=== PATIENT | female | born 1975 | race Two or more races ===

== ENCOUNTER 2016-12-02 12:31 | Emergency (ER) | payer MEDICAID ==
[~2016-12-02] VITALS: Ht 170.2 cm; Wt 88.5 kg
[~2016-12-02 12:31] MED LIST: IBUPROFEN600 MG ORAL; IBUPROFEN600 MG PO; NKM; NORCO 5-325 TA1 EACH ORAL
[2016-12-02] MEDS ORDERED: AMOXICILLIN500 MG ORAL (12:49)
[2016-12-02] MEDS ORDERED: TYLENOL EXTRA500 MG ORAL (12:49)
[2016-12-02 12:50] VITALS: BP 109/76
[2016-12-02 12:53] VITALS: BP 109/76
--- NOTE | 2016-12-02 14:10 | Emergency Room Report ---
History of Present Illness General Chief Complaint: Sore Throat Source: Patient Present Illness HPI 41-year-old female presents to ED complaining of throat pain times one week. Denies cough. Notes chills. Patient states pain is worse with swallowing. Pain is 8/10, throbbing, nonradiating. No aggravating relieving factors. Denies any other associated symptom Allergies: Coded Allergies: No Known Allergies (Unverified , 02/24/13) Patient History Past Medical History: none Past Surgical History: none Pertinent Family History: none Social History: Denies: alcohol use, drug use, smoking Last Menstrual Period: 12/01/16 Now: No Immunizations: UTD Reviewed Nursing Documentation: PMH: Agreed, PSxH: Agreed Nursing Documentation-PMH Past Medical History: No Stated History Review of Systems All Other Systems: negative except mentioned in HPI Physical Exam Vital Signs Date Time Temp Pulse Resp B/P Pulse Ox O2 Delivery O2 Flow Rate FiO2 12/02/16 12:42 97.5 61 16 109/76 98 Room Air Sp02 EP Interpretation: reviewed, normal General Appearance: no apparent distress, alert, GCS 15, non-toxic Head: normocephalic Eyes: bilateral eye PERRL, bilateral eye normal inspection ENT: TMs + canals normal, pharyngeal erythema, tonsillar exudate Neck: normal inspection Respiratory: chest non-tender, lungs clear, normal breath sounds, speaking full sentences Cardiovascular #1: regular rate, rhythm, no edema Gastrointestinal: normal inspection Rectal: deferred Genitourinary: no CVA tenderness Musculoskeletal: normal inspection Neurologic: alert, oriented x3, responsive, motor strength/tone normal, sensory intact, speech normal Psychiatric: normal inspection Skin: normal inspection Lymphatic: normal inspection Medical Decision Making Diagnostic Impression: Primary Impression: Pharyngitis Qualified Codes: J02.9 - Acute pharyngitis, unspecified ER Course Hospital Course 41-year-old female presents to ED complaining of sore throat Differential diagnoses include: URI, pharyngitis, otitis media Clinical course Patient placed on stretcher. After initial history, physical exam reveals a young male in no acute distress. Bilateral TM unremarkable. There is pharyngeal erythema w/ tonsillar exudates. No lymphadenopathy. Clinical findings consistent with pharyngitis. Reassurance given Diagnosis - pharyngitis Stable and discharged home with prescriptions for Motrin, amoxicillin. Instructed to followup with PMD. return to ED if symptoms recur or worsen Last Vital Signs Date Time Temp Pulse Resp B/P Pulse Ox O2 Delivery O2 Flow Rate FiO2 12/02/16 12:53 97.5 84 16 109/76 98 Room Air Status: improved Disposition: HOME, SELF-CARE Condition: Stable Scripts Acetaminophen* (TYLENOL EXTRA STRENGTH*) 500 Mg Tablet 500 MG ORAL Q8H Y for Prn Headache/Temp > 101, #30 TAB 0 Refills Prov: DANTE PRAJAPATI M.D. 12/02/16 Amoxicillin* (AMOXIL*) 500 Mg Capsule 500 MG ORAL THREE TIMES A DAY, #21 CAP Prov: DANTE PRAJAPATI M.D. 12/02/16 Referrals: NOT CHOSEN [facility]/,REFERRING (PCP) Patient Instructions: Pharyngitis, [id number] DANTE PRAJAPATI M.D. Dec 02, 2016 14:10
== END 2016-12-02 12:53 | disposition home or self-care (01) ==
LOC: EMR 12:46
DX: J02.9 Acute pharyngitis, unspecified (principal)
CPT/HCPCS: 99284

== ENCOUNTER 2017-04-29 11:07 | Emergency (ER) | payer MEDICAID ==
[~2017-04-29] VITALS: Ht 162.6 cm; Wt 88.5 kg
[~2017-04-29 11:07] MED LIST changes: +AMOXICILLIN500 MG ORAL; +TYLENOL EXTRA500 MG ORAL
[2017-04-29] MEDS ORDERED: Ketorolac 30mg Inj IV ONE (11:45)
[2017-04-29 11:50] VITALS: BP 111/76
[2017-04-29 12:06] LABS: BASOPHILS % (AUTO) 1.3 % (0.0-2.0); EOSINOPHILS % (AUTO) 0.9 % (0.0-3.0); LYMPHOCYTES % (AUTO) 32.6 % (20.0-45.0); MEAN CORPUSCULAR HEMOGLOBIN 22.8 PG (27.0-31.0); MEAN CORPUSCULAR HGB CONC 30.8 G/DL (32.0-36.0); MEAN CORPUSCULAR VOLUME 74 FL (80-99); MEAN PLATELET VOLUME 7.6 FL (6.5-10.1); MONOCYTES % (AUTO) 5.3 % (1.0-10.0); NEUTROPHILS % (AUTO) 59.9 % (45.0-75.0); PLATELET COUNT 300 K/UL (150-450); RED BLOOD COUNT 4.93 M/UL (4.20-5.40); RED CELL DISTRIBUTION WIDTH 15.2 % (11.6-14.8); WHITE BLOOD COUNT 6.4 K/UL (4.8-10.8)
[2017-04-29 12:08] LABS: APPEARANCE,URINE CLEAR; KETONES,URINE NEGATIVE (NEGATIVE); LEUKOCYTE ESTERASE ,URINE NEGATIVE (NEGATIVE); NITRITE,URINE NEGATIVE (NEGATIVE); PH,URINE 5 (4.5-8.0); PROTEIN,URINE NEGATIVE (NEGATIVE); UROBILINOGEN,URINE NORMAL MG/DL (0.0-1.0)
[2017-04-29 12:18] LABS: BACTERIA,URINE FEW /HPF; MUCUS,URINE FEW /LPF (NONE/OCC); RBC,URINE 0-2 /HPF (0 - 2); SQUAMOUS EPITHELIAL CELL,UR FEW /LPF (NONE/OCC); WBC,URINE 0-2 /HPF (0 - 2)
[2017-04-29 12:27] LABS: ALANINE AMINOTRANSFERASE 14 U/L (3-33); ALBUMIN/GLOBULIN RATIO 1.5 (1.0-2.7); ANION GAP 13 (5-15); ASPARTATE AMINO TRANSFERASE 12 U/L (5-40); CALCIUM 9.5 mg/dL (8.6-10.2); CARBON DIOXIDE 24 mEQ/L (20-30); CHLORIDE 102 mEQ/L (98-107); CREATININE 0.7 mg/dL (0.5-0.9); GLOMERULAR FILTRATION RATE > 60 mL/min (>60); HEMOLYSIS 0; LIPASE 24 U/L (< 60); SODIUM 139 mEQ/L (135-145)
--- NOTE | 2017-04-29 13:59 | Diagnostic Imaging Report ---
Indication: Right lower quadrant pain Technique: Spiral acquisitions obtained through the abdomen and pelvis. No oral contrast utilized, per emergency room physician request No IV contrast utilized, per referring physician request.. Multiplanar reconstructions were generated. Total dose length product 935 mGycm. CTDIvol(s) 19 mGy. Dose reduction achieved using automated exposure control Comparison: None Findings: Lack of enteric contrast limits assessment of the GI tract. The appendix is normal. There is no evidence of diverticulosis or diverticulitis. Small bowel loops are prominent, somewhat fluid-filled, but not frankly dilated. No free or loculated intraperitoneal air or fluid. Distal esophagus, stomach, duodenum are unremarkable. Lack of IV contrast limits assessment of the solid organs. The liver, gallbladder, pancreas, spleen, adrenals are unremarkable. There is an accessory splenule. There is mild ectasia of the right ureter, although there is no hydronephrosis and no ureteral obstructing lesion is demonstrated no focal renal parenchymal abnormality. The uterus is retroverted. No retroperitoneal or mesenteric mass or adenopathy. No pelvic mass or adenopathy. The lung bases demonstrate posterior dependent atelectatic changes. The bones are unremarkable. Impression: Limited exam, due to lack of oral and IV contrast administration. Mild ectasia of the right ureter, without evidence of downstream obstruction lesion. Significance uncertain but doubtful. Correlate with clinical findings No definite acute abnormality otherwise Minimal posterior dependent atelectatic pulmonary parenchymal changes incidentally noted The CT scanner at [facility] is accredited by the [employer] and the scans are performed using protocols designed to limit radiation exposure to as low as reasonably achievable to attain images of sufficient resolution adequate for diagnostic evaluation.
--- NOTE | 2017-04-29 14:04 | Emergency Room Report ---
History of Present Illness General Chief Complaint: Abdominal Pain Source: Patient Present Illness HPI This patient states that yesterday she twisted and then felt pain in her right back and right groin. She states the pain is worse with movement and twisting her torso. She states the pain radiates down her right leg to her right knee. She denies trauma. She denies recent illness. She denies fever or chills. She denies nausea or vomiting. She denies numbness. She has no other complaints. Allergies: Coded Allergies: No Known Allergies (Unverified , 02/24/13) Patient History Past Medical History: none, see triage record Social History: Denies: alcohol use, drug use, smoking Last Menstrual Period: 04/13/2017 Now: No Reviewed Nursing Documentation: PMH: Agreed, PSxH: Agreed Nursing Documentation-PMH Past Medical History: No Stated History Review of Systems All Other Systems: negative except mentioned in HPI Physical Exam Vital Signs Date Time Temp Pulse Resp B/P Pulse Ox O2 Delivery O2 Flow Rate FiO2 04/29/17 11:13 98.2 69 16 111/76 99 Sp02 EP Interpretation: reviewed, normal General Appearance: no apparent distress, alert, GCS 15, non-toxic Head: normocephalic, atraumatic Eyes: bilateral eye PERRL, bilateral eye normal inspection ENT: hearing grossly normal, normal pharynx, no angioedema, normal voice Neck: full range of motion, supple/symm/no masses Respiratory: no respiratory distress, no retraction, no accessory muscle use, speaking full sentences Cardiovascular #1: no edema Gastrointestinal: normal bowel sounds, soft, non-distended, no guarding, no rebound, tenderness - TTP in RLQ Rectal: deferred Musculoskeletal: back normal, gait/station normal, normal range of motion, non- tender Neurologic: alert, oriented x3, responsive, motor strength/tone normal, sensory intact, speech normal Psychiatric: judgement/insight normal, memory normal, mood/affect normal, no suicidal/homicidal ideation Skin: normal color, no rash, warm/dry, well hydrated Medical Decision Making Diagnostic Impression: Primary Impression: Sciatica Additional Impressions: Muscle strain Back pain ER Course This patient has a clinical presentation consistent with muscle strain/ sciatica. There are no red flags on physical exam or history that would make me concerned for underlying fracture. The patient did undergo CT of the abdomen and pelvis given a tenderness to palpation in the right lower quadrant. There is no evidence of appendicitis or other acute intra-abdominal findings. There is no evidence of urolithiasis or urinary tract infection. The patient' s laboratory workup is benign. The patient has pain with range of motion and has tenderness to palpation along the muscle. There is no evidence of compartment syndrome. There is no neurologic deficit. The patient was instructed on supportive home measures. No emergency medical condition was identified. The patient was given return precautions and followup instructions. Labs Test 04/29/17 11:40 White Blood Count 6.4 K/UL (4.8-10.8) Red Blood Count 4.93 M/UL (4.20-5.40) Hemoglobin 11.2 G/DL (12.0-16.0) Hematocrit 36.5 % (37.0-47.0) Mean Corpuscular Volume 74 FL (80-99) Mean Corpuscular Hemoglobin 22.8 PG (27.0-31.0) Mean Corpuscular Hemoglobin Concent 30.8 G/DL (32.0-36.0) Red Cell Distribution Width 15.2 % (11.6-14.8) Platelet Count 300 K/UL (150-450) Mean Platelet Volume 7.6 FL (6.5-10.1) Neutrophils (%) (Auto) 59.9 % (45.0-75.0) Lymphocytes (%) (Auto) 32.6 % (20.0-45.0) Monocytes (%) (Auto) 5.3 % (1.0-10.0) Eosinophils (%) (Auto) 0.9 % (0.0-3.0) Basophils (%) (Auto) 1.3 % (0.0-2.0) Urine Color Pale yellow Urine Appearance Clear Urine pH 5 (4.5-8.0) Urine Specific [place] 1.025 (1.005-1.035) Urine Protein Negative (NEGATIVE) Urine Glucose (UA) Negative (NEGATIVE) Urine Ketones Negative (NEGATIVE) Urine Occult Blood 1+ (NEGATIVE) Urine Nitrite Negative (NEGATIVE) Urine Bilirubin Negative (NEGATIVE) Urine Urobilinogen Normal MG/DL (0.0-1.0) Urine Leukocyte Esterase Negative (NEGATIVE) Urine RBC 0-2 /HPF (0 - 2) Urine WBC 0-2 /HPF (0 - 2) Urine Squamous Epithelial Cells Few /LPF (NONE/OCC) Urine Bacteria Few /HPF (NONE) Urine Mucus Few /LPF (NONE/OCC) Urine HCG, Qualitative Negative Sodium Level 139 mEQ/L (135-145) Potassium Level 4.0 mEQ/L (3.4-4.9) Chloride Level 102 mEQ/L (98-107) Carbon Dioxide Level 24 mEQ/L (20-30) Anion Gap 13 (5-15) Blood Urea Nitrogen 13 mg/dL (7-23) Creatinine 0.7 mg/dL (0.5-0.9) Estimat Glomerular Filtration Rate > 60 mL/min (>60) Glucose Level 118 mg/dL (74-106) Calcium Level 9.5 mg/dL (8.6-10.2) Total Bilirubin < 0.2 mg/dL (0.0-1.2) Aspartate Amino Transf (AST/SGOT) 12 U/L (5-40) Alanine Aminotransferase (ALT/SGPT) 14 U/L (3-33) Alkaline Phosphatase 69 U/L (35-104) Total Protein 7.0 g/dL (6.6-8.7) Albumin 4.2 g/dL (3.5-5.2) Globulin 2.8 g/dL Albumin/Globulin Ratio 1.5 (1.0-2.7) Lipase 24 U/L (< 60) CT/MRI/US Diagnostic Results CT/MRI/US Diagnostic Results : Imaging Test Ordered: CT abd/pelivs Impression Impression: Limited exam, due to lack of oral and IV contrast administration. Mild ectasia of the right ureter, without evidence of downstream obstruction lesion. Significance uncertain but doubtful. Correlate with clinical findings No definite acute abnormality otherwise Minimal posterior dependent atelectatic pulmonary parenchymal changes incidentally noted Last Vital Signs Date Time Temp Pulse Resp B/P Pulse Ox O2 Delivery O2 Flow Rate FiO2 04/29/17 11:50 98.2 69 16 111/76 99 Status: improved Disposition: HOME, SELF-CARE Condition: Improved Referrals: NOT CHOSEN IPA/,REFERRING (PCP) CHIDI KO D.O. Apr 29, 2017 14:04
[2017-04-29] MEDS ORDERED: IBUPROFEN600 MG ORAL (14:05)
[2017-04-29] MEDS ORDERED: CYCLOBENZAPRINE10 MG ORAL (14:05)
[2017-04-29 14:26] VITALS: BP 111/76
== END 2017-04-29 14:28 | disposition home or self-care (01) ==
LOC: EMR 11:30
DX: M54.30 Sciatica, unspecified side (principal); S39.012A Strain of muscle, fascia and tendon of lower back, initial encounter; X50.1XXA Overexertion from prolonged static or awkward postures, initial encounter; Y92.89 Other specified places as the place of occurrence of the external cause; R10.31 Right lower quadrant pain
CPT/HCPCS: 36415; 74176; 80053; 81003; 81025; 83690; 85025; 96374; 96375; 99284; J1885

== ENCOUNTER 2019-11-29 12:57 | Emergency (ER) | payer MEDICAID ==
[~2019-11-29] VITALS: Ht 165.1 cm; Wt 88.5 kg
[~2019-11-29 12:57] MED LIST changes: +CYCLOBENZAPRINE10 MG ORAL
--- NOTE | 2019-11-29 13:26 | NUR ---
ED Nurse Note: Pt walked into ED w/ c/o pain in head, shoulders, and legs 9/10 for 1 week. Pt describes pain as aching. Pt states it is unkown cause for colin and denies any injury or accident. Pt is alert and orientedx4, ambulatory. Pt does not have any coughing or congestion.
[2019-11-29 13:28] VITALS: BP 109/63
--- NOTE | 2019-11-29 13:42 | Emergency Room Report ---
History of Present Illness General Chief Complaint: Pain Source: Patient Present Illness HPI 44 YO female presents to the ED c/o body aches 9/10 in severity with a constant dull ROSARIO x 1 week. Pt. reports improvement after taking naproxen yesterday but her symptoms returned several hours later after medication wore off. She denies history of migraines. Patient denies recent trauma, fall or strenuous activities. She denies recent flulike symptoms. She denies fevers, chills, nausea, vomiting. Patient does report that she believes her symptoms significantly progressed after she ate some red meat yesterday. Patient denies abdominal pain, constipation or diarrhea. She denies dysuria, urinary frequency , urgency or hematuria. She denies any other significant past medical history and she states she is not currently taking any medications. She denies sudden onset of her ROSARIO. Allergies: Coded Allergies: No Known Allergies (Unverified , 02/24/13) Patient History Past Medical History: see triage record Past Surgical History: none Pertinent Family History: none Now: No Reviewed Nursing Documentation: PMH: Agreed; PSxH: Agreed Nursing Documentation-PMH Past Medical History: No Stated History Review of Systems All Other Systems: negative except mentioned in HPI Physical Exam Vital Signs Date Time Temp Pulse Resp B/P (MAP) Pulse Ox O2 Delivery O2 Flow Rate FiO2 11/29/19 13:10 98.8 94 17 110/68 (82) 95 Room Air Sp02 EP Interpretation: reviewed, normal General Appearance: no apparent distress, alert, GCS 15, non-toxic Head: normocephalic, atraumatic Eyes: bilateral eye normal inspection, bilateral eye PERRL, bilateral eye EOMI , bilateral eye other - no photophobia ENT: hearing grossly normal, normal voice Neck: full range of motion, no meningismus Respiratory: lungs clear, normal breath sounds, no respiratory distress, no wheezing, speaking full sentences Cardiovascular #1: regular rate, rhythm Gastrointestinal: normal bowel sounds, non tender, soft Rectal: deferred Genitourinary: normal inspection, no CVA tenderness Musculoskeletal: back normal, normal range of motion, gait/station normal, non- tender, other Neurologic: alert, motor strength/tone normal, oriented x3, sensory intact, responsive, speech normal, normal gait, grossly normal, normal inspection, no focal defects, other - negative kernig Psychiatric: judgement/insight normal Skin: no rash, normal color, normal inspection Lymphatic: no adenopathy Medical Decision Making PA Attestation Dr. Bhatt is my supervising Physician whom patient management has been discussed with. Diagnostic Impression: Primary Impression: Generalized body aches ER Course 44 YO female presents to the ED c/o body aches 9/10 in severity with a constant dull ROSARIO x 1 week. Pt. reports improvement after taking naproxen yesterday but her symptoms returned several hours later after medication wore off. She denies history of migraines. Patient denies recent trauma, fall or strenuous activities. She denies recent flulike symptoms. She denies fevers, chills, nausea, vomiting. Patient does report that she believes her symptoms significantly progressed after she ate some red meat yesterday. Patient denies abdominal pain, constipation or diarrhea. She denies dysuria, urinary frequency , urgency or hematuria. She denies any other significant past medical history and she states she is not currently taking any medications. She denies sudden onset of her ROSARIO. Ddx considered but are not limited to UTi , Pyelo, STI, Stone, Cystitis Vital signs: are WNL, pt. is afebrile H&PE are most consistent with possible UTI / generalized myalgias. Patient does not demonstrate any physical signs that would indicate meningitis, subarachnoid hemorrhage or encephalitis at this time. Patient has full range of motion of all joints she is nontoxic in appearance and in no acute distress. ORDERS: - UA labs are attached : WNL no evidence of infection. ED INTERVENTIONS: -Toradol IM -Tylenol PO -I do not identify an emergent condition at this time. With current presentation , pt. is stable for close outpatient follow up and conservative treatment. D/ w pt. to return promptly to ED with worsening or new symptoms.- Pt. verbalizes' understanding and agreement with proposed treatment plan.proposed treatment plan. DISCHARGE: At this time pt. is stable for d/c to home. Will provide printed patient care instructions, and any necessary prescriptions. Care plan and follow up instructions have been discussed with the patient prior to discharge. Labs Test 11/29/19 14:05 Urine Color Pale yellow Urine Appearance Clear Urine pH 6.5 (4.5-8.0) Urine Specific [place] 1.010 (1.005-1.035) Urine Protein Negative (NEGATIVE) Urine Glucose (UA) Negative (NEGATIVE) Urine Ketones Negative (NEGATIVE) Urine Blood Negative (NEGATIVE) Urine Nitrite Negative (NEGATIVE) Urine Bilirubin Negative (NEGATIVE) Urine Urobilinogen Normal MG/DL (0.0-1.0) Urine Leukocyte Esterase Negative (NEGATIVE) Last Vital Signs Date Time Temp Pulse Resp B/P (MAP) Pulse Ox O2 Delivery O2 Flow Rate FiO2 11/29/19 13:28 98.8 70 17 109/63 99 Room Air Disposition: HOME, SELF-CARE Condition: Stable Scripts Ibuprofen* (MOTRIN*) 600 Mg Tablet 600 MG ORAL THREE TIMES A DAY, #30 TAB 0 Refills Prov: Angelia Wilkinson 11/29/19 Referrals: NON PHYSICIAN (PCP) Patient Instructions: Joint Pain, [id number], Muscle Pain, Adult, Pain Without a Known Cause Additional Instructions: Take medications as directed. Follow up with a Primary Care Provider in 3-5 days, even if your symptoms have resolved. --Please review list of primary care clinics, if you do not already have a primary care provider Return sooner to ED if new symptoms occur, or current symptoms become worse. - Please note that this Emergency Department Report was dictated using [employer] paper products technology software, occasionally this can lead to erroneous entry secondary to interpretation by the dictation equipment. Angelia Wilkinson Nov 29, 2019 13:41
[2019-11-29] MEDS ORDERED: Ketorolac 30mg Inj IM ONE (13:45)
[2019-11-29 14:32] LABS: APPEARANCE,URINE CLEAR; BILIRUBIN, URINE NEGATIVE (NEGATIVE); COLOR,URINE PALE YELLOW; GLUCOSE, URINE (UA) NEGATIVE (NEGATIVE); KETONES,URINE NEGATIVE (NEGATIVE); LEUKOCYTE ESTERASE ,URINE NEGATIVE (NEGATIVE); NITRITE,URINE NEGATIVE (NEGATIVE); PH,URINE 6.5 (4.5-8.0); PROTEIN,URINE NEGATIVE (NEGATIVE); UROBILINOGEN,URINE NORMAL MG/DL (0.0-1.0)
[2019-11-29] MEDS ORDERED: IBUPROFEN600 MG ORAL (15:23)
--- NOTE | 2019-11-29 15:34 | NUR ---
ER DISCHARGE NOTE: Patient is cleared to be discharged per ERMD, pt is aox4, on room air, with stable vital signs. pt was given dc and prescription instructions, pt was able to verbalize understanding, pt id band removed. pt is able to ambulate with steady gait. pt took all belongings.
[2019-11-29 15:35] VITALS: BP 110/72
== END 2019-11-29 15:36 | disposition home or self-care (01) ==
LOC: EMR 13:21
DX: R52 Pain, unspecified (principal)
CPT/HCPCS: 81003; 96372; J1885; Z7502; 99283

== ENCOUNTER 2020-08-15 16:47 | Emergency (ER) | payer MEDICAID ==
[~2020-08-15] VITALS: Ht 152.4 cm; Wt 83.9 kg
--- NOTE | 2020-08-15 17:17 | NUR ---
ED Nurse Note: triage information obtained via interpreter and translator Tresa, # [id number].
[2020-08-15 17:20] VITALS: BP 108/61
[2020-08-15] MEDS ORDERED: CYMBALTA30 MG ORAL (17:20)
--- NOTE | 2020-08-15 17:20 | NUR ---
ED Nurse Note: Pt walked into ED c/o epigastric pain and diarrhea x3 days. Pt stated pain worsens every after meal. Denies n/v. No fever/ chill. AAOx4, verbally responsive. Sinhala speaking only.
[2020-08-15] MEDS ORDERED: LEVOTHYROXINE125 MCG ORAL (17:21)
[2020-08-15] MEDS ORDERED: BACLOFEN10 MG ORAL (17:21)
[2020-08-15] MEDS ORDERED: FERROUS SULFAT325 MG ORAL (17:21)
[2020-08-15] MEDS ORDERED: VITAMIN D325 MC1 PO (17:21)
[2020-08-15] MEDS ORDERED: Dicyclomine HCl 10mg/5ml oral soln ORAL ONE (17:45)
[2020-08-15] MEDS ORDERED: Mylanta II UD 30ml ORAL ONE (17:45)
[2020-08-15] MEDS ORDERED: Lidocaine 2% Visc 15ml soln ORAL ONE (17:45)
--- NOTE | 2020-08-15 18:41 | Emergency Room Report ---
History of Present Illness General Chief Complaint: Abdominal Pain Source: Patient Present Illness HPI 45-year-old female presents to the emergency department complaining of 6 out of 10 severity epigastric pain with exacerbation every time she attempts to eat or drink anything. Patient reports she has been having symptoms for 3 weeks however she notices her symptoms are more frequent. Patient also reports having loose stools regularly and states that she has been having symptoms for about 2 months. She denies nausea or vomiting. She denies blood in the stool or black tarry stools. Patient does report history of anemia and was taking iron at 1 point but she states she has increased iron-containing foods in her diet. Patient reports only only other medical problem is hypothyroid. She denies recent travel or ill contacts with similar symptoms. She denies abdominal pain or tenderness. She denies urainary frequency, urgency, dysuria or hematuria. She reports recent shoulder injury and was taking muscle relaxer and Naproxen. Pt. reports having appointment with her PCP on the of this month regarding her symptoms. She denies CP, palpitations, or dizziness. Allergies: Coded Allergies: No Known Allergies (Unverified , 02/24/13) COVID-19 Screening Contact w/high risk pt: No Experienced COVID-19 symptoms?: Yes COVID-19 Testing performed SOUS CHEF KITCHEN MANAGER: No Patient History Past Medical History: see triage record Past Surgical History: none Pertinent Family History: none Last Menstrual Period: 07/31/20 Now: No Reviewed Nursing Documentation: PMH: Agreed; PSxH: Agreed Nursing Documentation-PM Past Medical History: No History, Except For Review of Systems All Other Systems: negative except mentioned in HPI Physical Exam Vital Signs Date Time Temp Pulse Resp B/P (MAP) Pulse Ox O2 Delivery O2 Flow Rate FiO2 08/15/20 16:53 99.0 92 16 108/61 (77) 95 Room Air Sp02 EP Interpretation: reviewed, normal General Appearance: no apparent distress, alert, GCS 15, non-toxic Head: normocephalic, atraumatic Eyes: bilateral eye normal inspection, bilateral eye PERRL ENT: hearing grossly normal, normal voice Neck: full range of motion Respiratory: lungs clear, normal breath sounds, speaking full sentences Cardiovascular #1: regular rate, rhythm Gastrointestinal: normal bowel sounds, non tender, soft, non-distended, no guarding Rectal: deferred Genitourinary: normal inspection, no CVA tenderness Musculoskeletal: normal range of motion, gait/station normal, non-tender Neurologic: alert, motor strength/tone normal, oriented x3, sensory intact, responsive, speech normal Psychiatric: judgement/insight normal Skin: no rash, normal color Medical Decision Making PA Attestation Dr. Sol is my supervising Physician whom patient management has been discussed with. Diagnostic Impression: Primary Impression: Gastritis Qualified Codes: K29.00 - Acute gastritis without bleeding Additional Impressions: Epigastric abdominal pain Diarrhea Qualified Codes: R19.7 - Diarrhea, unspecified ER Course 45-year-old female presents to the emergency department complaining of 6 out of 10 severity epigastric pain with exacerbation every time she attempts to eat or drink anything. Patient reports she has been having symptoms for 3 weeks however she notices her symptoms are more frequent. Patient also reports having loose stools regularly and states that she has been having symptoms for about 2 months. She denies nausea or vomiting. She denies blood in the stool or black tarry stools. Patient does report history of anemia and was taking iron at 1 point but she states she has increased iron-containing foods in her diet. Miladys ent reports only only other medical problem is hypothyroid. She denies recent travel or ill contacts with similar symptoms. She denies abdominal pain or tenderness. She denies urainary frequency, urgency, dysuria or hematuria. She reports recent shoulder injury and was taking muscle relaxer and Naproxen. Pt. reports having appointment with her PCP on the of this month regarding her symptoms. She denies CP, palpitations, or dizziness. Ddx considered but are not limited to GE, colitis, acute appendicitis, SBO, H.pylori, Gastritis, PNA, pericarditis just to name a few. Vital signs: pt. is afebrile, H&PE are most consistent with Gastritis - no evidence to suggest acute abdomen on physical exam. Pt. non-toxic in appearance, NAD able to tolerate oral medications and fluids. Pt. does not show signs of significant dehydration. ORDERS: -None required at this time, the dx is clinical. ED INTERVENTIONS: -Mylanta PO -Lidocaine PO -Pepcid PO Upon re-evaluation, pt. reports her symptoms have improved. -I do not identify an emergent condition at this time. With current presentation, pt. is stable for close outpatient follow up and conservative treatment. D/w pt. to return promptly to ED with worsening or new symptoms.- Pt. (and or responsible democrat) verbalizes' understanding and agreement with proposed treatment plan.proposed treatment plan. DISCHARGE: At this time pt. is stable for d/c to home. Will provide printed patient care instructions, and any necessary prescriptions. Care plan and follow up instructions have been discussed with the patient prior to discharge. Last Vital Signs Date Time Temp Pulse Resp B/P (MAP) Pulse Ox O2 Delivery O2 Flow Rate FiO2 08/15/20 17:20 92 16 Room Air 08/15/20 17:20 99.0 108/61 95 Status: improved Disposition: HOME, SELF-CARE Condition: Stable Referrals: NOT CHOSEN IPA/MD,REFERRING (PCP) Patient Instructions: Food Choices to Help Relieve Diarrhea, Adult, Gastritis, Adult, [id number] Additional Instructions: Take medications as directed. Follow up with a Primary Care Provider in 3-5 days, even if your symptoms have resolved. Keep the appointment that you made with your primary care provider on the of this month. Return sooner to ED if new symptoms occur, or current symptoms become worse. - Please note that this Emergency Department Report was dictated using [email or web address] manager technology software, occasionally this can lead to erroneous entry secondary to interpretation by the dictation equipment. Angelia Wilkinson Aug 15, 2020 18:41
[2020-08-15] MEDS ORDERED: FAMOTIDINE20 MG ORAL (18:43)
[2020-08-15] MEDS ORDERED: DICYCLOMINE HCL10 MG ORAL (18:43)
[2020-08-15] MEDS ORDERED: LIDOCAINE VISC100 ML ORAL (18:43)
[2020-08-15 18:50] VITALS: BP 115/68
--- NOTE | 2020-08-15 18:50 | NUR ---
ED Nurse Note: Pt cleared by ERPA for discharge. DC instructions was given and explained to pt and verbalized understanding of teachings. v sent electronically to the pharmacy of choice. All medical deviecs such as ID band removed. Pt is AAO x4, ambulatory and left with all personal belongings.
== END 2020-08-15 18:50 | disposition home or self-care (01) ==
LOC: EMR 17:30
DX: K29.00 Acute gastritis without bleeding (principal); R19.7 Diarrhea, unspecified
CPT/HCPCS: 99282

== ENCOUNTER 2020-11-21 23:35 | Inpatient (IN) | payer MEDICAID ==
[~2020-11-21] VITALS: Ht 165.1 cm; Wt 88.0 kg
[~2020-11-21 23:35] MED LIST changes: +BACLOFEN10 MG ORAL; +CYMBALTA30 MG ORAL; +DICYCLOMINE HCL10 MG ORAL; +FAMOTIDINE20 MG ORAL; +FERROUS SULFAT325 MG ORAL; +LEVOTHYROXINE125 MCG ORAL; +LIDOCAINE VISC100 ML ORAL; +VITAMIN D325 MC1 PO
--- NOTE | 2020-11-22 00:04 | Emergency Room Report ---
History of Present Illness General Chief Complaint: Abdominal Pain Source: Patient Present Illness HPI Patient is a 45-year-old female presents for increased suprapubic pain. Reports having recent been taking medications due to increased abdominal cramping. Reports having intermittent pain. States she is currently been on her menses for the past 3 days. Denies any fever. Prior history of anemia. Reports having some diarrhea. Allergies: Coded Allergies: No Known Allergies (Unverified , 02/24/13) COVID-19 Screening Contact w/high risk pt: No Experienced COVID-19 symptoms?: Yes COVID-19 Testing performed CELL LINER: No Patient History Past Medical History: see triage record Reviewed Nursing Documentation: PMH: Agreed; PSxH: Agreed Nursing Documentation-PMH Hx Gastrointestinal Problems: Yes - gastritis Review of Systems All Other Systems: negative except mentioned in HPI Physical Exam Vital Signs Date Time Temp Pulse Resp B/P (MAP) Pulse Ox O2 Delivery O2 Flow Rate FiO2 11/21/20 23:49 98.8 90 18 133/61 (85) 97 Room Air Sp02 EP Interpretation: reviewed, normal General Appearance: normal inspection, alert, GCS 15, non-toxic, mild distress, Chronically Ill Head: atraumatic ENT: normal ENT inspection, hearing grossly normal, normal voice Neck: normal inspection, full range of motion, supple, no bony tend Respiratory: normal inspection, lungs clear, normal breath sounds, no respiratory distress, no retraction, no wheezing Cardiovascular #1: regular rate, rhythm, no edema Gastrointestinal: normal inspection, normal bowel sounds, non tender, soft, no guarding, no hernia Genitourinary: CVA tenderness (R) Musculoskeletal: normal inspection, back normal, normal range of motion Neurologic: alert, oriented x3, responsive, speech normal, normal inspection Psychiatric: normal inspection, judgement/insight normal, mood/affect normal Medical Decision Making Diagnostic Impression: Primary Impression: Colitis Additional Impression: Anemia ER Course Patient presents for abdominal pain. Differential diagnosis include was not limited to appendicitis, diverticulitis, gastroenteritis among others. Because of complexity of patient's case laboratory tests and imaging studies were ordered. Labs Test 11/22/20 00:15 White Blood Count 9.4 K/UL (4.8-10.8) Red Blood Count 4.72 M/UL (4.20-5.40) Hemoglobin 8.2 G/DL (12.0-16.0) Hematocrit 29.0 % (37.0-47.0) Mean Corpuscular Volume 61 FL (80-99) Mean Corpuscular Hemoglobin 17.3 PG (27.0-31.0) Mean Corpuscular Hemoglobin Concent 28.2 G/DL (32.0-36.0) Red Cell Distribution Width 15.5 % (11.6-14.8) Platelet Count 343 K/UL (150-450) Mean Platelet Volume 7.4 FL (6.5-10.1) Neutrophils (%) (Auto) % (45.0-75.0) Lymphocytes (%) (Auto) % (20.0-45.0) Monocytes (%) (Auto) % (1.0-10.0) Eosinophils (%) (Auto) % (0.0-3.0) Basophils (%) (Auto) % (0.0-2.0) Sodium Level 137 MMOL/L (136-145) Potassium Level 3.9 MMOL/L (3.5-5.1) Chloride Level 104 MMOL/L (98-107) Carbon Dioxide Level 26 MMOL/L (21-32) Anion Gap 7 mmol/L (5-15) Blood Urea Nitrogen 15 mg/dL (7-18) Creatinine 0.9 MG/DL (0.55-1.30) Estimat Glomerular Filtration Rate > 60 mL/min (>60) Glucose Level 109 MG/DL (74-106) Calcium Level 9.0 MG/DL (8.5-10.1) Total Bilirubin 0.4 MG/DL (0.2-1.0) Aspartate Amino Transf (AST/SGOT) 12 U/L (15-37) Alanine Aminotransferase (ALT/SGPT) 18 U/L (12-78) Alkaline Phosphatase 79 U/L (46-116) Total Protein 7.4 G/DL (6.4-8.2) Albumin 3.2 G/DL (3.4-5.0) Globulin 4.2 g/dL Albumin/Globulin Ratio 0.8 (1.0-2.7) Lipase 76 U/L (73-393) Last Vital Signs Date Time Temp Pulse Resp B/P (MAP) Pulse Ox O2 Delivery O2 Flow Rate FiO2 11/21/20 23:49 98.8 90 18 133/61 (85) 97 Room Air Status: unchanged Disposition: ADMITTED INPATIENT Condition: Stable Referrals: NON PHYSICIAN (PCP) Cabrera Bhatt MD Nov 22, 2020 00:04
[2020-11-22] MEDS ORDERED: Ketorolac 30mg Inj IV ONE (00:15)
[2020-11-22] MEDS ORDERED: Dicyclomine HCl 10mg/5ml oral soln ORAL ONE (00:15)
[2020-11-22] MEDS ORDERED: Mylanta II UD 30ml ORAL ONE (00:15)
[2020-11-22] MEDS ORDERED: Lidocaine 2% Visc 15ml soln ORAL ONE (00:15)
[2020-11-22] MEDS ORDERED: Omnipaque-300 100ml vial INJ PRN (00:15)
--- NOTE | 2020-11-22 00:15 | NUR ---
ED Nurse Note: Recieved pt walk in from home with c/o severe abdominal pain, chronic, pt has hx of gastritis, seen by pmd, given pepcid and immodium and states it makes her pain worse, pt is crying and moaning, also states had emesis, no cp, sob, fevers or any other complaints, pt appears very un-comfortable.
[2020-11-22 00:51] LABS: HEMOGLOBIN 8.2 G/DL (12.0-16.0); MEAN CORPUSCULAR VOLUME 61 FL (80-99); PLATELET COUNT 343 K/UL (150-450); RED BLOOD COUNT 4.72 M/UL (4.20-5.40); RED CELL DISTRIBUTION WIDTH 15.5 % (11.6-14.8); WHITE BLOOD COUNT 9.4 K/UL (4.8-10.8)
[2020-11-22] MEDS ORDERED: Morphine Sulfate 4mg/ml Inj (IV USE ONLY) IVP ONE ×2 (01:00→04:45)
[2020-11-22 01:09] LABS: ANION GAP 7 mmol/L (5-15); BLOOD UREA NITROGEN 15 mg/dL (7-18); CARBON DIOXIDE 26 MMOL/L (21-32); CHLORIDE 104 MMOL/L (98-107); CREATININE 0.9 MG/DL (0.55-1.30); POTASSIUM 3.9 MMOL/L (3.5-5.1); SODIUM 137 MMOL/L (136-145)
[2020-11-22 01:13] LABS: ALANINE AMINOTRANSFERASE 18 U/L (12-78); ALBUMIN 3.2 G/DL (3.4-5.0); ALBUMIN/GLOBULIN RATIO 0.8 (1.0-2.7); ALKALINE PHOSPHATASE 79 U/L (46-116); ASPARTATE AMINO TRANSFERASE 12 U/L (15-37); BILIRUBIN,TOTAL 0.4 MG/DL (0.2-1.0)
--- NOTE | 2020-11-22 01:20 | NUR ---
ED Nurse Note: Meds given non-effective, pt in room crying and continues to ask for pain medications, MD aware, new med orders given, pt re-medicated, will continue to monitor for med effectiveness or any acute chagnes, pt is currently being taken to imaging for CT-Scan.
--- NOTE | 2020-11-22 02:00 | NUR ---
ED Nurse Note: Pt returned, re-started on IV fluids, states meds given more effective with pain level at 5/10, pt is resting quietly, IV site patent, will continue to montior while waiting for results and disposition.
[2020-11-22 02:45] VITALS: BP 141/55
--- NOTE | 2020-11-22 03:01 | Diagnostic Imaging Report ---
EXAM: CT Abdomen and Pelvis With Intravenous Contrast CLINICAL HISTORY: ABD PAIN TECHNIQUE: Axial computed tomography images of the abdomen and pelvis with intravenous contrast. CTDI is 12.6 mGy and DLP is 664.6 mGy-cm. One or more of the following dose reduction techniques were used: automated exposure control, adjustment of the mA and/or kV according to patient size, use of iterative reconstruction technique. COMPARISON: No relevant prior studies available. FINDINGS: Lung bases: Unremarkable. No mass. No consolidation. ABDOMEN: Liver: Unremarkable. No mass. Gallbladder and bile ducts: Unremarkable. No calcified stones. No ductal dilation. Pancreas: Unremarkable. No mass. No ductal dilation. Spleen: Unremarkable. No splenomegaly. Adrenals: Unremarkable. No mass. Kidneys and ureters: Unremarkable. No solid mass. No hydronephrosis. Stomach and bowel: Large amount of retained stool throughout the colon. Segments of wall thickening of the: Are present throughout that are most pronounced transverse and left colon. These regions of wall thickening are of indeterminate etiology and may reflect segments of colitis, including stercoral colitis. There is a segment of distal sigmoid colon demonstrating significant circumferential wall thickening and luminal narrowing. Although this also may reflect a segment of colitis, infiltrating neoplastic lesion cannot be excluded. Direct visualization recommended with colonoscopy. Distention of the small bowel with fecal-like material throughout the distal small bowel most consistent with delay in GI tract transit. PELVIS: Appendix: The appendix was not visualized. Bladder: Unremarkable. No mass. Reproductive: Unremarkable as visualized. ABDOMEN and PELVIS: Intraperitoneal space: Unremarkable. No free air. No significant fluid collection. Bones/joints: No acute fracture. No dislocation. Soft tissues: Unremarkable. Vasculature: Unremarkable. No abdominal aortic aneurysm. Lymph nodes: Unremarkable. No enlarged lymph nodes. Other findings: Very poor contrast-enhancement throughout. No issues related to contrast administration were noted by the technologist. IMPRESSION: Large amount of retained stool. Delay in GI transit throughout also evidence by significant fecal-like material in the distal small bowel with. Areas of colon Wall thickening with adjacent inflammatory changes are present and may reflect areas of colitis, including stercoral colitis. There is a segment in the distal sigmoid colon demonstrating circumferential wall thickening and luminal narrowing that is indeterminate for an annular carcinoma. Direct visualization is recommended. <MYCVCSECTION> Communications: 11/22/20 03:14 Verify Receipt Verified receipt with Caleb- given to Dr. Bhatt on 11/22 03:14 (-08:00)
[2020-11-22] MEDS ORDERED: Ferrous Sulfate 300 MG/5 ML UDC ONE (03:38)
[2020-11-22] MEDS ORDERED: Ferrous Sulfate 300 MG/5 ML UDC ORAL ONE (03:45)
[2020-11-22] MEDS ORDERED: Lactulose 20gm/30ml UDC ORAL ONE (03:45)
--- NOTE | 2020-11-22 04:15 | NUR ---
ED Nurse Note: Pt continues to rest in bed, states pain is returning and nausea, denies chest pain, sob or any new complaints, pt is to be admitted for anemia and colitis, pt still has no urine, MD informed and states ok, will continue to monitor, medicate as ordered and prepre for hospital admission. Gladys Moon CNA assisted with upper sorbian translation.
[2020-11-22] MEDS ORDERED: Morphine Sulfate 4mg/ml Inj (IV USE ONLY) ONE (04:40)
--- NOTE | 2020-11-22 05:10 | NUR ---
ED Nurse Note: Pt has room for admission, report called to floor nurse Pingrn, pt in bed resting quietly, belongings list completed, med rec done, pt in mark and md spoke with him and he is aware of admission, pt being taken to unit via wheelchair with er-tech, nad noted during pt transport to floor bed.
[2020-11-22] MEDS ORDERED: IMODIUM A-1 MG/7.5 M PO (05:18)
[2020-11-22] MEDS ORDERED: Golytely 4L ORAL SCH ×2 (06:30→14:00)
--- NOTE | 2020-11-22 06:41 | NUR ---
NURSE NOTES: Received patient alert and oriented x4 from ED assisted by a staff via wheelchair. With complaint of 5/10 on abdominal area. Per patient she had 1 liquid BM as soon she arrived in the patient's room. Belongings checked. Instructed patient for urine collection, hat trolley collector placed on toilet, instructed patient to use call light for assistance. Call light in reach. Bed in lowest and lock engaged. Spoke with for admission orders, he said he's putting his orders in.
--- NOTE | 2020-11-22 07:45 | NUR ---
NURSE NOTES: RN received report from Denisha and patient in bed. Patient is aaoX4, denies respiratory distress or pain. Care plan communicated. IV flushed, patent, intact, clean, dry and asymptomatic. Call light within reach and patient is able to make needs known. Bed in lowest position, locked. Side rails up X2. Patient is ambulatory with steady gait. Will continue to monitor.
[2020-11-22 08:00] VITALS: BP_SYST 101; BP_SYST 113; BP_DIAS 62; BP_DIAS 77
[2020-11-22] MEDS ORDERED: 1/2NS w/KCl 20mEq 1000ml 1,000 ML IV SCH (08:00)
--- NOTE | 2020-11-22 08:01 | NUR ---
NURSE HAND-OFF: Important Events on Shift: admission Patient Status: Diet: clear liquid Pending Orders: Pending Results/Labs: Pending MD notification: Latest Vital Signs: Temperature 98.6 , Pulse 82 , B/P 141 /55 , Respiratory Rate 18 , O2 SAT 99 , Room Air, O2 Flow Rate . Vital Sign Comment: Latest Torres Fall Score: 20 Fall Risk: Low Risk Safety Measures: Call light Within Reach, Bed Alarm , Side Rails Side Rails x2, Bed position Low and Locked. Fall Precautions: Report given to LEW Lauren.
--- NOTE | 2020-11-22 08:42 | General Progress Note ---
Subjective ROS Limited/Unobtainable: Yes Allergies: Coded Allergies: No Known Allergies (Unverified , 02/24/13) Objective Last 24 Hour Vital Signs Date Time Temp Pulse Resp B/P (MAP) Pulse Ox O2 Delivery O2 Flow Rate FiO2 11/22/20 05:54 Room Air 11/22/20 05:20 98.6 82 18 141/55 99 Room Air 11/22/20 05:11 98.6 11/22/20 02:45 98.6 82 18 141/55 99 Room Air 11/22/20 00:57 98.8 11/22/20 00:57 98.8 11/22/20 00:10 90 18 Room Air 11/21/20 23:49 98.8 90 18 133/61 (85) 97 Room Air Laboratory Tests 11/22/20 00:15: White Blood Count 9.4, Red Blood Count 4.72, Hemoglobin 8.2L, Hematocrit 29.0L, Mean Corpuscular Volume 61L, Mean Corpuscular Hemoglobin 17.3L, Mean Corpuscular Hemoglobin Concent 28.2L, Red Cell Distribution Width 15.5H, Platelet Count 343, Mean Platelet Volume 7.4, Neutrophils (%) (Auto) , Lymphocytes (%) (Auto) , Monocytes (%) (Auto) , Eosinophils (%) (Auto) , Basophils (%) (Auto) , Sodium Level 137, Potassium Level 3.9, Chloride Level 104, Carbon Dioxide Level 26, Anion Gap 7, Blood Urea Nitrogen 15, Creatinine 0.9, Estimat Glomerular Filtration Rate > 60, Glucose Level 109H, Calcium Level 9.0, Total Bilirubin 0.4, Aspartate Amino Transf (AST/SGOT) 12L, Alanine Aminotransferase (ALT/SGPT) 18, Alkaline Phosphatase 79, Total Protein 7.4, Albumin 3.2L, Globulin 4.2, Albumin/Globulin Ratio 0.8L, Lipase 76 Height (Feet): 5 Height (Inches): 6.00 Weight (Pounds): 222 General Appearance: no apparent distress EENT: PERRL/EOMI Neck: supple Cardiovascular: normal rate Respiratory/Chest: decreased breath sounds Abdomen: hypoactive bowel sounds Extremities: normal range of motion, non-tender Assessment/Plan Problem List: (1) Diarrhea ICD Codes: R19.7 - Diarrhea, unspecified SNOMED: 20079219 (2) Anemia ICD Codes: D64.9 - Anemia, unspecified SNOMED: 981057285 (3) Colitis ICD Codes: K52.9 - Noninfective gastroenteritis and colitis, unspecified SNOMED: 45664663 (4) Epigastric abdominal pain ICD Codes: R10.13 - Epigastric pain SNOMED: 20139532 Assessment/Plan: CT reviewed plan EGD and colonoscopy for tomorrow CEA anemia work up Kavon Díaz MD Nov 22, 2020 08:42
[2020-11-22] MEDS ORDERED: Hydrocortisone Enema Susp 60ml RECTAL SCH (09:00)
[2020-11-22] MEDS: Hydrocortisone Enema Susp 60ml RECTAL SCH ×2 (09:00→09:47)
[2020-11-22 09:21] LABS: APPEARANCE,URINE SLIGHTLY CLOUDY; COLOR,URINE BROWN; GLUCOSE, URINE (UA) NEGATIVE (NEGATIVE); KETONES,URINE 1+ (NEGATIVE); LEUKOCYTE ESTERASE ,URINE 2+ (NEGATIVE); NITRITE,URINE POSITIVE (NEGATIVE); PH,URINE 5 (4.5-8.0); PROTEIN,URINE 1+ (NEGATIVE); UROBILINOGEN,URINE 4 MG/DL (0.0-1.0)
[2020-11-22 09:37] LABS: BILIRUBIN, URINE 1+ (NEGATIVE)
[2020-11-22] MEDS: Docusate 100mg cap ORAL SCH ×2 (09:45→20:40)
[2020-11-22 10:14] LABS: HEMATOCRIT 27.9 % (37.0-47.0); HEMOGLOBIN 7.9 G/DL (12.0-16.0); MEAN CORPUSCULAR VOLUME 61 FL (80-99); PLATELET COUNT 336 K/UL (150-450); RED BLOOD COUNT 4.56 M/UL (4.20-5.40); RED CELL DISTRIBUTION WIDTH 15.4 % (11.6-14.8); WHITE BLOOD COUNT 7.8 K/UL (4.8-10.8)
[2020-11-22 10:48] LABS: FERRITIN 4 NG/ML (8-388)
[2020-11-22 10:52] LABS: % IRON SATURATION 3 % (15-50); IRON 11 ug/dL (50-175); TOTAL IRON BINDING CAPACITY 358 ug/dL (250-450)
[2020-11-22 12:00] VITALS: BP 116/64
--- NOTE | 2020-11-22 12:00 | NUR ---
NURSE NOTES: RN collected urine and stools for labs. RN made Annette aware from lab and Dr. Fernandez that patient is on period.
--- NOTE | 2020-11-22 13:14 | History and Physical Report ---
DATE OF ADMISSION: 11/22/2020 CHIEF COMPLAINT/REASON FOR HOSPITALIZATION: The patient is admitted for diarrhea and colitis. HISTORY OF PRESENT ILLNESS: The patient is a 45-year-old lady who has been having diarrhea on and off for a about a month worse in the last 2 weeks, 2 to 4 times a day. She presents with low abdominal pain and found to have on CT imaging evidence of colitis, possible narrowing in the rectum and possible fecal impaction. In generally, she has been a healthy lady prior to this. ALLERGIES: None known. PAST SURGICAL HISTORY: None. HOME MEDICATIONS: Include baclofen, vitamin D3, Cymbalta, Pepcid, ferrous sulfate, loperamide. HABITS: She is a nondrinker and nonsmoker. SOCIAL HISTORY: She lives with her and two children. SYSTEM REVIEW: HEAD, EYES, EARS, NOSE, AND THROAT: Vision and hearing is good. ENDOCRINE: History of hypothyroidism, I believe on replacement, it is not on her med list. No diabetes. PULMONARY: No asthma, TB. CARDIAC: No angina, DC, palpitations. GASTROINTESTINAL: No history of chronic bowel problems prior to the past month. GENITOURINARY: No dysuria, hematuria. She is on her menses, moderately heavy menses, irregular menses. NEUROLOGIC: No CVA or syncope. MUSCULOSKELETAL: No inflamed joints. PHYSICAL EXAMINATION: VITAL SIGNS: Temperature 98.6, pulse 82, respiratory rate 18, blood pressure 121/55. GENERAL: She is alert, mildly obese with a BMI of 35.8, no acute distress. HEAD EYES, EARS, NOSE, AND THROAT: Sclerae are nonicteric. Ocular motions intact in all directions. Oral mucosa moist. NECK: No adenopathy or thyroid enlargement. LUNGS: Clear. HEART: Regular rhythm. No murmur. ABDOMEN: Soft, nontender. No organomegaly. EXTREMITIES: No edema, cyanosis, or clubbing. NEUROLOGIC: She is alert and oriented, no focal findings. LABORATORY DATA: White count 7.8, hemoglobin 7.9, microcytic. Initial potassium low, repeat 3.9. Iron saturation 3%. Albumin 3.2. Liver enzymes normal. IMPRESSION: 1. Colitis. 2. Iron-deficiency anemia which could be due to menses, could be due to gastrointestinal problems. 3. Abdominal pain secondary to above. 4. Possible fecal impaction. 5. Possible infectious diarrhea although there is no history of travel, fever, or chills. PLAN: The patient started on Flagyl, intravenous iron, give her GoLYTELY prep and consider possible colonoscopy, GI consult has been made. Lonnie Fernandez M.D. DR: Ludy JOB#: [id number] CC:
[2020-11-22 16:00] VITALS: BP 125/74
[2020-11-22] MEDS ORDERED: Bisacodyl EC 5mg tab ORAL SCH (16:00)
[2020-11-22] MEDS: D5 1/2NS w/KCl 20mEq 1,000 ML IV SCH (16:17)
--- NOTE | 2020-11-22 19:57 | NUR ---
NURSE HAND-OFF: Important Events on Shift:diarrhea, consents signed, golytely Patient Status: stable Diet: clear liquid diet, NPO midnight Pending Orders: n/a Pending Results/Labs:n/a Pending MD notification:n/a Latest Vital Signs: Temperature 98.6 , Pulse 74 , B/P 125 /74 , Respiratory Rate 18 , O2 SAT 98 , Room Air, O2 Flow Rate . Vital Sign Comment: stable Latest Torres Fall Score: 20 Fall Risk: Low Risk Safety Measures: Call light Within Reach, Bed Alarm , Side Rails Side Rails x2, Bed position Low and Locked. Fall Precautions: Report given to
[2020-11-22 20:00] VITALS: BP 130/72
[2020-11-22] MEDS: Iron Sucrose 100 MG in NS 55 ML IVPB SCH (20:40)
--- NOTE | 2020-11-22 20:40 | NUR ---
NURSE NOTES: Patient in bed, awake, alert x 4. Able to make needs known. Respiration is even and unlabored. Kept clean comfortable. Abdomen is soft, no pain at the moment. Skin is warm and dry to touch. Iv site noted, iv fluid is infusing as ordered. Bed in low and locked position. Provided safe environment. Educated patient regarding medication regiment. Informed patient to call nurse regarding bowel movement. Call light is at bedside. Will continue plan of care.
[2020-11-23] VITALS (10 sets, daily range): BP systolic 105–133; BP diastolic 66–76
[2020-11-23] MEDS: D5 1/2NS w/KCl 20mEq 1,000 ML IV SCH ×3 (05:04→22:23)
[2020-11-23 07:15] LABS: ANION GAP 8 mmol/L (5-15); BLOOD UREA NITROGEN 15 mg/dL (7-18); CALCIUM 8.3 MG/DL (8.5-10.1); CARBON DIOXIDE 26 MMOL/L (21-32); CHLORIDE 106 MMOL/L (98-107); CREATININE 0.7 MG/DL (0.55-1.30); HEMATOCRIT 24.4 % (37.0-47.0); MEAN CORPUSCULAR VOLUME 61 FL (80-99); PLATELET COUNT 319 K/UL (150-450); POTASSIUM 3.8 MMOL/L (3.5-5.1); RED BLOOD COUNT 4.01 M/UL (4.20-5.40); RED CELL DISTRIBUTION WIDTH 15.2 % (11.6-14.8); SODIUM 140 MMOL/L (136-145); WHITE BLOOD COUNT 3.7 K/UL (4.8-10.8)
[2020-11-23 07:27] LABS: HEMOGLOBIN 6.9 G/DL (12.0-16.0)
[2020-11-23 07:31] LABS: % IRON SATURATION 30 % (15-50); IRON 92 ug/dL (50-175); TOTAL IRON BINDING CAPACITY 312 ug/dL (250-450)
--- NOTE | 2020-11-23 07:42 | NUR ---
NURSE NOTES: Dr. Díaz was called for hemoglobin 6.9, awaiting for call back.
--- NOTE | 2020-11-23 08:44 | Anethesia Preoperative Eval ---
Anesthesia Pre-op PMH/ROS General Date of Evaluation: Nov 23, 2020 Time of Evaluation: 08:42 Anesthesiologist: sampson ASA Score: ASA 3 Mallampati Score Class I : Soft palate, uvula, fauces, pillars visible Class II: Soft palate, uvula, fauces visible Class III: Soft palate, base of uvula visible Class IV: Only hard plate visible Mallampati Classification: Class II Surgeon: bethanie Diagnosis: anemia Surgical Procedure: egd/colonoscopy Anesthesia History: none Social History: smoking - nonsmoker Family History: no anesthesia problems Allergies: Coded Allergies: No Known Allergies (Unverified , 02/24/13) Medications: see eMAR Patient NPO?: Yes Past Medical History Gastrointestinal/Genitourinary: Reports: other - colitis, gastritis, epigastric pain, pharyngitis, diarrhea Endocrine: Reports: hypothyroidism Anesthesia Pre-op Phys. Exam Physician Exam Last Vital Signs Date Time Temp Pulse Resp B/P (MAP) Pulse Ox O2 Delivery O2 Flow Rate FiO2 11/23/20 04:00 98.1 72 18 105/66 (79) 96 11/22/20 21:00 Room Air Constitutional: NAD Neurologic: CN 2-12 intact Cardiovascular: RRR Respiratory: CTA Gastrointestinal: S/NT/ND Airway Exam Mallampati Score: Class II MO: limited Neck: flexible TMD: 2fb ROM: limited Anesthesia Pre-op A/P Labs Microbiology Date/Time Source Procedure Growth Status 11/22/20 00:20 Nasopharynx SARS-CoV-2 Antigen (Rapid)(PATRICK) - Final Complete Hematology Test 11/22/20 09:30 11/23/20 05:43 White Blood Count 7.8 K/UL (4.8-10.8) 3.7 K/UL (4.8-10.8) #L Red Blood Count 4.56 M/UL (4.20-5.40) 4.01 M/UL (4.20-5.40) L Hemoglobin 7.9 G/DL (12.0-16.0) L 6.9 G/DL (12.0-16.0) *L Hematocrit 27.9 % (37.0-47.0) L 24.4 % (37.0-47.0) L Mean Corpuscular Volume 61 FL (80-99) L 61 FL (80-99) L Mean Corpuscular Hemoglobin 17.2 PG (27.0-31.0) L 17.2 PG (27.0-31.0) L Mean Corpuscular Hemoglobin Concent 28.2 G/DL (32.0-36.0) L 28.2 G/DL (32.0-36.0) L Red Cell Distribution Width 15.4 % (11.6-14.8) H 15.2 % (11.6-14.8) H Platelet Count 336 K/UL (150-450) 319 K/UL (150-450) Mean Platelet Volume 7.0 FL (6.5-10.1) 7.3 FL (6.5-10.1) Neutrophils (%) (Auto) % (45.0-75.0) % (45.0-75.0) Lymphocytes (%) (Auto) % (20.0-45.0) % (20.0-45.0) Monocytes (%) (Auto) % (1.0-10.0) % (1.0-10.0) Eosinophils (%) (Auto) % (0.0-3.0) % (0.0-3.0) Basophils (%) (Auto) % (0.0-2.0) % (0.0-2.0) Differential Total Cells Counted 100 Neutrophils % (Manual) 82 % (45-75) H Pending Lymphocytes % (Manual) 6 % (20-45) L Pending Monocytes % (Manual) 11 % (1-10) H Eosinophils % (Manual) 0 % (0-3) Basophils % (Manual) 1 % (0-2) Band Neutrophils 0 % (0-8) Platelet Estimate Adequate Pending Platelet Morphology Normal Pending Hypochromasia 1+ Anisocytosis 1+ Microcytosis 2+ Ovalocytes Occasional Chemistry Test 11/22/20 09:30 11/23/20 05:43 Iron Level 11 ug/dL (50-175) L 92 ug/dL (50-175) Total Iron Binding Capacity 358 ug/dL (250-450) 312 ug/dL (250-450) Percent Iron Saturation 3 % (15-50) L 30 % (15-50) Unsaturated Iron Binding 347 ug/dL (112-346) H 220 ug/dL (112-346) Ferritin 4 NG/ML (8-388) L Thyroid Stimulating Hormone (TSH) 0.081 uiU/mL (0.358-3.740) Sodium Level 140 MMOL/L (136-145) Potassium Level 3.8 MMOL/L (3.5-5.1) Chloride Level 106 MMOL/L (98-107) Carbon Dioxide Level 26 MMOL/L (21-32) Anion Gap 8 mmol/L (5-15) Blood Urea Nitrogen 15 mg/dL (7-18) Creatinine 0.7 MG/DL (0.55-1.30) Estimat Glomerular Filtration Rate > 60 mL/min (>60) Glucose Level 92 MG/DL (74-106) Calcium Level 8.3 MG/DL (8.5-10.1) L Carcinoembryonic Antigen Pending Risk Assessment & Plan Assessment: asa3 Plan: mac Status Change Before Surgery: No Pre-Antibiotics Drug: Christina Leong MD Nov 23, 2020 08:44
[2020-11-23] MEDS ORDERED: Atropine Inj 1mg/10ml Syr IVP PRN (08:45)
[2020-11-23] MEDS ORDERED: DiphenhydrAMINE 50mg/ml Inj IVP PRN (08:45)
[2020-11-23] MEDS ORDERED: fentaNYL 100 mcg/2 mL IV PRN (08:45)
[2020-11-23] MEDS ORDERED: Midazolam 2mg/2ml Inj IVP PRN (08:45)
[2020-11-23] MEDS: Docusate 100mg cap ORAL SCH ×2 (09:00→22:33)
--- NOTE | 2020-11-23 09:45 | Pre-Procedure Note/Attestation ---
Pre-Procedure Note/Attestation Complete Prior to Procedure Planned Procedure: not applicable Procedure Narrative: esophagogastroduodenoscopy and colonoscopy Indications for Procedure Pre-Operative Diagnosis: anemia Attestation I attest that I discussed the nature of the procedure; its benefits; risks and complications; and alternatives (and the risks and benefits of such alternatives), prior to the procedure, with the patient (or the patient's legal franchise sales representative). I attest that, if there was a reasonable possibility of needing a blood transfusion, the patient (or the patient's legal franchise sales representative) was given the [facility] standardized written summary, pursuant to the Aleksandr Vanda Blood Safety Act ([place] Health and Safety Code # 1645, as amended). I attest that I re-evaluated the patient just prior to the surgery and that there has been no change in the patient's H&P, except as documented below: Kavon Díaz MD Nov 23, 2020 09:45
[2020-11-23] MEDS ORDERED: Lidocaine 1% MPF 10mg/ml 5ml ONE (10:00)
[2020-11-23] MEDS ORDERED: NS 500ML IVPB ONE (10:25)
--- NOTE | 2020-11-23 10:26 | Endoscopy Procedure Note ---
Endoscopy Procedure Note General Indication for Procedure: anemia Procedures Performed: EGD, colonoscopy Operative Findings/Diagnosis: gastritis, hemorrhoids Specimen: yes Pt Tolerated Procedure Well: Yes Estimated Blood Loss: none Anesthesia Anesthesiologist: devonte Anesthesia: MAC Inserted Devices Implant(s) used?: No GI Core Measures 50 yrs or older w/o bx or poly: Not Applicable 10yrs. F/U recommended: Not Applicable Kavon Díaz MD Nov 23, 2020 10:26
[2020-11-23] MEDS ORDERED: Omnipaque-300 100ml vial INJ PRN ×2 (10:45)
--- NOTE | 2020-11-23 11:09 | Immediate Post-Op Evaluation ---
Immediate Post-Op Evalulation Immediate Post-Op Evalulation Procedure: egd/colonoscopy w/bx Date of Evaluation: Nov 23, 2020 Time of Evaluation: 11:02 IV Fluids: 100ml 0.9ns Blood Products: none Estimated Blood Loss: negligible Blood Pressure Systolic: 122 Blood Pressure Diastolic: 67 Pulse Rate: 77 Respiratory Rate: 18 O2 Sat by Pulse Oximetry: 100 Temperature (Fahrenheit): 98.3 Pain Score (1-10): 0 Nausea: No Vomiting: No Complications none Patient Status: awake, reacts, patent Hydration Status: adequate Drug: Christina Leong MD Nov 23, 2020 11:09
--- NOTE | 2020-11-23 11:10 | 48 Hour Post Anesthesia Eval ---
Post Anesthesia Evaluation Procedure: egd/colonoscopy w/bx Date of Evaluation: Nov 23, 2020 Time of Evaluation: 11:04 Blood Pressure Systolic: 113 0: 86 Pulse Rate: 78 Respiratory Rate: 18 Temperature (Fahrenheit): 98.3 O2 Sat by Pulse Oximetry: 100 Airway: patent Nausea: No Vomiting: No Pain Intensity: 0 Hydration Status: adequate Cardiopulmonary Status: stable Mental Status/LOC: patient returned to baseline Post-Anesthesia Complications: none Follow-up care needed: N/A Christina Crowell MD Nov 23, 2020 11:10
--- NOTE | 2020-11-23 15:04 | Diagnostic Imaging Report ---
Indication: Chest pain. Abdominal pain. Technique: CT of the chest, abdomen and pelvis utilizing automated exposure control with intravenous contrast. Venous scanning performed. Axial, sagittal and coronal reformats presented. CT dose: Total DLP 898.9 mGycm; CTDI vol 58.5 mGy Comparison: Correlation made to CT of the abdomen and pelvis 11/22/2020 Findings: CT chest: Streaky linear densities noted in the superior segment of the right lower lobe as well as within the lingula favored to represent areas of subsegmental atelectasis. There is also some dependent atelectatic changes in the lung bases. There is no pleural effusion. No pneumothorax. There is elevation of the left hemidiaphragm with adjacent streaky atelectasis at the left base. Heart size is within normal limits. No pericardial effusion. No sagittal or large central pulmonary embolism appreciated. Thoracic aorta is normal in caliber. No pathologically enlarged hilar or mediastinal lymphadenopathy. Imaged portions of the thyroid unremarkable. Subtle asymmetry of the left breast tissue when compared to the right with a hypoattenuating central region. CT abdomen/pelvis: Hepatic contour is smooth. No focal pelvic mass lesion is seen on this single phase exam. Hepatic veins and portal veins appear patent. There are no CT evident gallstones or discrete pericholecystic inflammatory changes. No biliary ductal dilatation. Spleen, adrenal glands and pancreas grossly unremarkable. Pancreatic enhancement is uniform. There is no peripancreatic inflammatory changes or fluid collections. Kidneys enhance symmetrically. No hydronephrosis or urinary tract stone is appreciated. There are heterogeneous masses in the uterus. Represent fibroids. There is a 3 cm intermediate attenuation mass along the right aspect of the uterus which may represent a pedunculated fibroid versus a solid right ovarian mass. There is bladder wall thickening which may relate to underdistention versus cystitis. There is no free peritoneal air. No evidence of small bowel obstruction. There is mild to moderate retained stool in the sigmoid colon although decreased compared to 11/22/2020. There is gas throughout the remainder of the colon. Persistent thickening of portions of the wall of the rectum. There is some adjacent perirectal lymph nodes (for example axial image #67). Largest periportal lymph node measures approximately 1.2 cm diameter. Abdominal aorta is normal in caliber. No aggressive/destructive bony lesion is seen. No acute osseous abnormality. IMPRESSION: * Persistent short segmental wall thickening of the distal sigmoid/proximal rectum. Adjacent prominent perirectal lymph nodes. Although findings may potentially be related to a focal colitis possibility of a colonic malignancy should also be considered. Recommend correlation with colonoscopy. * Decreased colonic stool burden although mild to moderate stool persists in the sigmoid colon. * No small bowel obstruction, free intraperitoneal air or fluid. * Multiple heterogeneous masses in the uterus which may represent fibroids. * 3 cm intermediate attenuation mass adjacent to the right aspect of the uterus which may represent a pedunculated fibroid versus ovarian lesion. Consider further evaluation with pelvic ultrasound. * Bladder wall thickening which may be related to under distention versus cystitis. * Streaky bilateral subsegmental atelectasis. * Subtle focal asymmetry in the left breast. Recommend correlation with findings most recent mammogram. If not performed recently recommend follow-up mammogram. The CT scanner at [facility] is accredited by the [employer] and the scans are performed using protocols designed to limit radiation exposure to as low as reasonably achievable to attain images of sufficient resolution adequate for diagnostic evaluation.
--- NOTE | 2020-11-23 16:02 | General Progress Note ---
Subjective Constitutional: Reports: weakness HEENT: Reports: no symptoms Cardiovascular: Reports: no symptoms Respiratory: Reports: no symptoms Gastrointestinal/Abdominal: Reports: abdominal pain Genitourinary: Reports: no symptoms Neurologic/Psychiatric: Reports: no symptoms Endocrine: Reports: no symptoms Hematologic/Lymphatic: Reports: no symptoms Allergies: Coded Allergies: No Known Allergies (Unverified , 02/24/13) Subjective menses ending Objective Last 24 Hour Vital Signs Date Time Temp Pulse Resp B/P (MAP) Pulse Ox O2 Delivery O2 Flow Rate FiO2 11/23/20 11:25 97.3 79 18 128/69 98 Room Air 11/23/20 11:20 75 15 126/71 96 Room Air 11/23/20 11:15 72 20 120/70 97 Room Air 11/23/20 11:10 78 18 100 11/23/20 11:09 77 18 100 11/23/20 11:00 67 17 116/75 96 Room Air 11/23/20 10:50 98.3 77 18 122/67 100 Room Air 11/23/20 09:00 Room Air 11/23/20 08:00 96.9 66 19 107/71 (83) 97 11/23/20 04:00 98.1 72 18 105/66 (79) 96 11/23/20 00:00 97.8 71 18 133/70 (91) 97 11/22/20 21:00 Room Air 11/22/20 20:00 98.0 75 18 130/72 (91) 96 11/22/20 16:47 98.6 Intake and Output 11/22/20 11/23/20 19:00 07:00 Intake Total 910 ml Balance 910 ml Intake Oral 200 ml IV Total 710 ml # Voids 2 5 # Bowel Movements 3 5 Laboratory Tests 11/23/20 05:43: White Blood Count 3.7#L, Red Blood Count 4.01L, Hemoglobin 6.9*L, Hematocrit 24.4L, Mean Corpuscular Volume 61L, Mean Corpuscular Hemoglobin 17.2L, Mean Corpuscular Hemoglobin Concent 28.2L, Red Cell Distribution Width 15.2H, Platelet Count 319, Mean Platelet Volume 7.3, Neutrophils (%) (Auto) , Lymphocytes (%) (Auto) , Monocytes (%) (Auto) , Eosinophils (%) (Auto) , Basophils (%) (Auto) , Differential Total Cells Counted 100, Neutrophils % (Manual) 53, Lymphocytes % (Manual) 36, Monocytes % (Manual) 9, Eosinophils % (Manual) 2, Basophils % (Manual) 0, Band Neutrophils 0, Platelet Estimate Adequate, Platelet Morphology Normal, Hypochromasia 2+, Anisocytosis 1+, Microcytosis 2+, Sodium Level 140, Potassium Level 3.8, Chloride Level 106, Carbon Dioxide Level 26, Anion Gap 8, Blood Urea Nitrogen 15, Creatinine 0.7, Estimat Glomerular Filtration Rate > 60, Glucose Level 92, Calcium Level 8.3L, Iron Level 92, Total Iron Binding Capacity 312, Percent Iron Saturation 30, Unsaturated Iron Binding 220, Carcinoembryonic Antigen [Pending] Height (Feet): 5 Height (Inches): 5.00 Weight (Pounds): 194 General Appearance: WD/WN, no apparent distress EENT: normal ENT inspection Neck: normal alignment Cardiovascular: normal rate, regular rhythm Respiratory/Chest: lungs clear Abdomen: non tender, soft Edema: no edema noted Arm (L), no edema noted Arm (R), no edema noted Leg (L), no edema noted Leg (R), no edema noted Pedal (L), no edema noted Pedal (R), no edema noted Generalized Neurologic: sourcing analyst II-XII grossly normal Assessment/Plan Problem List: (1) Iron deficiency anemia ICD Codes: D50.9 - Iron deficiency anemia, unspecified SNOMED: 74017672 (2) Rectal mass ICD Codes: K62.89 - Other specified diseases of anus and rectum SNOMED: 488294870 (3) Diarrhea ICD Codes: R19.7 - Diarrhea, unspecified SNOMED: 53250620 (4) Colitis ICD Codes: K52.9 - Noninfective gastroenteritis and colitis, unspecified SNOMED: 04731495 Assessment/Plan: call to ekdar pena case t pa plan as will need care at a [facility] facility Lonnie Fernandez MD Nov 23, 2020 16:02
--- NOTE | 2020-11-23 18:29 | Procedure Note ---
DATE OF PROCEDURE: 11/23/2020 SURGEON: Kavon Díaz MD PROCEDURE: Upper endoscopy with biopsy and colonoscopy. ANESTHESIA: Per Dr. Zurita. INSTRUMENT: Olympus adult flexible colonoscope and upper endoscope. INDICATION: Anemia. REASON FOR PROCEDURE: The procedure, risks, benefits, and possible consequences, including hemorrhage, aspiration, perforation and infection, and alternative treatments, were explained to the patient/legal guardian by Dr. Kavon Díaz and the patient/legal guardian understood and accepted these risks. PROCEDURE IN DETAIL: After informed consent was obtained and the patient was adequately sedated, Olympus upper endoscope was advanced from mouth into the second portion of the duodenum and retroflexion was performed in the stomach. The patient had evidence of diffuse gastritis. Random biopsy from antrum was obtained to rule out H. pylori infection. Otherwise, the rest of the upper endoscopy examination grossly within normal limits. At this time, the patient was turned over for colonoscopy. First rectal exam was performed, which was positive for internal hemorrhoids. Then, the scope was advanced from anus into rectum. Unfortunately, there was a mass at about cm from the anal verge, ulcerative, almost obstructing, highly suspicious for adenocarcinoma. We could not pass the scope beyond this point. Biopsy from this mass was obtained and the most distal part of this mass was tattooed. The patient tolerated the procedure very well without any complication. SUMMARY OF FINDINGS: 1. Gastritis status post biopsy. 2. Partially obstructing rectal mass at about cm from the anal verge, status post biopsy. RECOMMENDATIONS: 1. Follow pathology. 2. We will order rojas-CT. 3. Ordered CEA. 4. We will recommend surgery and Oncology consultation. Kavon Díaz M.D. DR: Cecilia JOB#: [id number] CC:
--- NOTE | 2020-11-23 19:32 | NUR ---
NURSE NOTES: Patient in bed, awake, alert, verbally responsive. Able to make needs known. Respiration is even and unlabored. Skin is warm and dry to touch. Abdomen is soft and non distended. Jamaican speaking. Blood transfusion is ongoing. Iv site noted. Bed in low and locked position. provided safe environment. No complaint of pain or discomfort noted. Call light is at bedside. Will continue plan of care.
[2020-11-23] MEDS: Iron Sucrose 100 MG in NS 55 ML IVPB SCH (21:00)
--- NOTE | 2020-11-23 23:44 | Discharge Summary ---
DATE OF ADMISSION: 11/22/2020 DATE OF DISCHARGE: 11/23/2020 PERTINENT HISTORY: The patient presents with diarrhea, abdominal pain. She has apparently had GI symptoms for several months. She also came with iron deficiency anemia, but she is on heavy menses. PERTINENT PHYSICAL FINDINGS: See dictated H and P. LUNGS: Clear. HEART: Regular rhythm. ABDOMEN: Soft without focal tenderness. COURSE IN THE HOSPITAL: She had an abnormal CT scanning consistent with colitis and a rectal mass. Dr. Díaz saw and brought her to colonoscopy, which showed a large rectal mass consistent with rectal cancer and some gastritis. This was explained to the patient in detail and the patient was started on a clear liquid diet after colonoscopy. She also received Venofer and 1 unit of packed cells for iron deficiency anemia. She had no severe bleeding during this admission. The patient was instructed because of her limited insurance that she should go to a [facility] facility as soon as possible with records that are provided to her from [facility] and seek care for rectal cancer. She was told that there is treatment and she should not give up hope, but seek appropriate medical care at the facility that can treat her long-term; however, this was explained via regional manager at least 2 times and she was discharged home in stable condition. FINAL DIAGNOSES: 1. Rectal cancer. 2. Menorrhagia. 3. Iron deficiency anemia. 4. Colitis, likely secondary to the rectal cancer. 5. Gastritis. DISCHARGE DISPOSITION: On a clear liquid diet. No new medications and she is to follow up in the [facility] facility within the next few days. Lonnie Fernandez M.D. DR: MARIAM JOB#: [id number] CC:
[2020-11-24] VITALS: BP 116/63
[2020-11-24 04:00] VITALS: BP 109/64
--- NOTE | 2020-11-24 07:07 | NUR ---
NURSE HAND-OFF: Important Events on Shift:WNL Patient Status: Diet: NPO Pending Orders: Pending Results/Labs: Pending MD notification: Latest Vital Signs: Temperature 97.3 , Pulse 66 , B/P 109 /64 , Respiratory Rate 16 , O2 SAT 97 , Room Air, O2 Flow Rate . Vital Sign Comment: WNL Latest Torres Fall Score: 20 Fall Risk: Low Risk Safety Measures: Call light Within Reach, Bed Alarm , Side Rails Side Rails x2, Bed position Low and Locked. Fall Precautions: Report given to LEW Petty.
--- NOTE | 2020-11-24 07:38 | NUR ---
NURSE NOTES: Dr. Díaz was called for diet order, patient still NPO after EGD/Colonoscopy. Next shift nurse made aware.
--- NOTE | 2020-11-24 07:45 | General Progress Note ---
Subjective Constitutional: Reports: weakness HEENT: Reports: no symptoms Cardiovascular: Reports: no symptoms Respiratory: Reports: no symptoms Gastrointestinal/Abdominal: Reports: abdominal pain Genitourinary: Reports: no symptoms Neurologic/Psychiatric: Reports: no symptoms Endocrine: Reports: no symptoms Allergies: Coded Allergies: No Known Allergies (Unverified , 02/24/13) Subjective menses ending Objective Last 24 Hour Vital Signs Date Time Temp Pulse Resp B/P (MAP) Pulse Ox O2 Delivery O2 Flow Rate FiO2 11/24/20 04:00 97.3 66 16 109/64 (79) 97 11/24/20 00:00 97.5 72 16 116/63 (80) 99 11/23/20 21:00 Room Air 11/23/20 20:00 97.7 69 17 113/69 (84) 99 11/23/20 16:00 97.7 60 18 106/76 (86) 100 11/23/20 11:25 97.3 79 18 128/69 98 Room Air 11/23/20 11:20 75 15 126/71 96 Room Air 11/23/20 11:15 72 20 120/70 97 Room Air 11/23/20 11:10 78 18 100 11/23/20 11:09 77 18 100 11/23/20 11:00 67 17 116/75 96 Room Air 11/23/20 10:50 98.3 77 18 122/67 100 Room Air 11/23/20 09:00 Room Air 11/23/20 08:00 96.9 66 19 107/71 (83) 97 Intake and Output 11/23/20 11/24/20 19:00 07:00 Intake Total 50 ml 175 ml Output Total 3 ml Balance 47 ml 175 ml IV Total 50 ml 175 ml Output Urine Total 3 ml Height (Feet): 5 Height (Inches): 5.00 Weight (Pounds): 194 General Appearance: no apparent distress, alert EENT: normal ENT inspection Neck: supple Cardiovascular: regular rhythm Respiratory/Chest: normal breath sounds Abdomen: non tender Edema: no edema noted Arm (L), no edema noted Arm (R), no edema noted Leg (L), no edema noted Leg (R), no edema noted Pedal (L), no edema noted Pedal (R), no edema noted Generalized Assessment/Plan Problem List: (1) Iron deficiency anemia ICD Codes: D50.9 - Iron deficiency anemia, unspecified SNOMED: 65031697 (2) Rectal mass ICD Codes: K62.89 - Other specified diseases of anus and rectum SNOMED: 036172677 (3) Diarrhea ICD Codes: R19.7 - Diarrhea, unspecified SNOMED: 18146949 (4) Colitis ICD Codes: K52.9 - Noninfective gastroenteritis and colitis, unspecified SNOMED: 80796539 Assessment/Plan: call to dr bethanie avila mass, rectal cancer, to f/u [facility], [place], [facility], [place] plan as will need care at a [facility] facility Lonnie Fernandez MD Nov 24, 2020 07:45
[2020-11-24 08:00] VITALS: BP 115/70
[2020-11-24] MEDS: Docusate 100mg cap ORAL SCH ×2 (09:00→09:43)
--- NOTE | 2020-11-24 11:19 | NUR ---
RD ASSESSMENT & RECOMMENDATIONS SEE CARE ACTIVITY FOR COMPLETE ASSESSMENT DAILY ESTIMATED NEEDS: Needs based on GI 63.5kg abw 25-30 kcals/kg 1474-5427 total kcals 1-1.5 g protein/kg 64-95 g total protein 25-30 mL/kg 9180-3812 total fluid mLs NUTRITION DIAGNOSIS: Altered GI function related to anemia as evidenced by s/p EGD/ colonoscopy w/ finding of rectal mass, pt adm w/ diarrhea and rectal bleeding, Hgb now critically low 6.9. CURRENT DIET:NPO-> now CLD PO DIET RECOMMENDATIONS: CLD as per MD ADDITIONAL RECOMMENDATIONS: 1) Add Ensure Clear TID w/ meals 2) Advance diet as per MD, rec soft low fiber diet 3) daily wts 4) Maintain D5 while on CLD
[2020-11-24 11:49] VITALS: BP 111/71
--- NOTE | 2020-11-24 13:10 | General Progress Note ---
Subjective ROS Limited/Unobtainable: Yes Allergies: Coded Allergies: No Known Allergies (Unverified , 02/24/13) Objective Last 24 Hour Vital Signs Date Time Temp Pulse Resp B/P (MAP) Pulse Ox O2 Delivery O2 Flow Rate FiO2 11/24/20 11:49 97.5 59 16 111/71 (84) 99 11/24/20 09:00 Room Air 11/24/20 08:00 97.3 65 16 115/70 (85) 100 11/24/20 04:00 97.3 66 16 109/64 (79) 97 11/24/20 00:00 97.5 72 16 116/63 (80) 99 11/23/20 21:00 Room Air 11/23/20 20:00 97.7 69 17 113/69 (84) 99 11/23/20 16:00 97.7 60 18 106/76 (86) 100 Intake and Output 11/23/20 11/24/20 19:00 07:00 Intake Total 50 ml 175 ml Output Total 3 ml Balance 47 ml 175 ml IV Total 50 ml 175 ml Output Urine Total 3 ml Laboratory Tests 11/24/20 08:25: Carcinoembryonic Antigen [Pending] Height (Feet): 5 Height (Inches): 5.00 Weight (Pounds): 194 General Appearance: no apparent distress EENT: normal ENT inspection Neck: supple Cardiovascular: normal rate Respiratory/Chest: decreased breath sounds Abdomen: normal bowel sounds, non tender, soft Extremities: non-tender Assessment/Plan Problem List: (1) Diarrhea ICD Codes: R19.7 - Diarrhea, unspecified SNOMED: 39286881 (2) Anemia ICD Codes: D64.9 - Anemia, unspecified SNOMED: 590363697 (3) Colitis ICD Codes: K52.9 - Noninfective gastroenteritis and colitis, unspecified SNOMED: 21203505 (4) Epigastric abdominal pain ICD Codes: R10.13 - Epigastric pain SNOMED: 21324948 Assessment/Plan: rectal mass path c/w adeno ca patient is being discharged with [facility] Kavon Jimenez MD Nov 24, 2020 13:10
--- NOTE | 2020-11-24 13:30 | NUR ---
Patient discharged home. IV removed. Peace Officer utilized to give patient discharge information and community resources. Patient verbalized understanding.
== END 2020-11-24 13:30 | disposition home or self-care (01) | DRG 240 ==
LOC: EMR 23:55 → 4E 11-22 04:13 → EDBEDREQ 11-22 04:35
PROC: 0DBQ8ZX Excision of Anus, Via Natural or Artificial Opening Endoscopic, Diagnostic (ICD-10-PCS; principal; 2020-11-23 10:30)
PROC: 0DB78ZX Excision of Stomach, Pylorus, Via Natural or Artificial Opening Endoscopic, Diagnostic (ICD-10-PCS; 2020-11-23 10:30)
PROC: 30233N1 Transfusion of Nonautologous Red Blood Cells into Peripheral Vein, Percutaneous Approach (ICD-10-PCS; 2020-11-23 10:30)
DX: C20 Malignant neoplasm of rectum (principal); D50.9 Iron deficiency anemia, unspecified; K56.41 Fecal impaction; K29.70 Gastritis, unspecified, without bleeding; N92.0 Excessive and frequent menstruation with regular cycle; K52.89 Other specified noninfective gastroenteritis and colitis; K64.8 Other hemorrhoids
CPT/HCPCS: 36415; 45381; 71260; 74177; 80048; 80053; 81003; 81025; 82378; 82728; 83540; 83550; 83690; 84443; 84703; 85007; 85025; 86850; 86900; 86901; 86920; 87324; 94003; 94150; 96361; 96374; 96375; 99285; J2405; J7030